=== PATIENT | male | born 1980 | race African-American/Black ===

== ENCOUNTER 2022-08-14 12:34 | Emergency (ER) | payer MEDICAID, OTHER ==
[~2022-08-14] VITALS: Ht 190.5 cm; Wt 101.0 kg
[~2022-08-14 12:34] MED LIST: ALBUTEROL; BUSPAR; RISPERDAL; VISTARIL; WELLBUTRIN
[2022-08-14] MEDS ORDERED: ACETAMINOPHEN 325MG SUPP PR ONE (16:30)
[2022-08-14] MEDS ORDERED: KETOROLAC 30MG/ML VIAL IM ONE (16:30)
[2022-08-14] MEDS ORDERED: ACETAMINOPHEN 325MG TABLET PO ONE ×2 (17:15)
[2022-08-14 17:19] VITALS: BP 135/74
[2022-08-14] MEDS ORDERED: IBUP-2028 MT (18:49)
== END 2022-08-14 19:17 | disposition home or self-care (01) ==
LOC: ER 13:07
DX: S83.8X2A Sprain of other specified parts of left knee, initial encounter (principal); Y04.2XXA Assault by strike against or bumped into by another person, initial encounter; R03.0 Elevated blood-pressure reading, without diagnosis of hypertension; Y93.89 Activity, other specified; Y92.89 Other specified places as the place of occurrence of the external cause
CPT/HCPCS: 73560; 96372; 99283; J1885; L1830; Z7610

== ENCOUNTER 2023-12-04 14:08 | Emergency (ER) | payer OTHER ==
[~2023-12-04] VITALS: Ht 188 cm; Wt 105.0 kg
[~2023-12-04 14:08] MED LIST changes: +IBUP-2028 MT
[2023-12-04 14:26] VITALS: O2SAT 99
[2023-12-04 19:48] VITALS: BP 102/63; PULSE 78; RESP 12; TEMP 98.6
== END 2023-12-04 19:45 | disposition home or self-care (01) ==
LOC: ER 14:08
DX: M25.562 Pain in left knee (principal); M25.561 Pain in right knee; Z91.048 Other nonmedicinal substance allergy status; Z98.890 Other specified postprocedural states; V49.9XXA Car occupant (driver) (passenger) injured in unspecified traffic accident, initial encounter; Y93.89 Activity, other specified; Y92.89 Other specified places as the place of occurrence of the external cause; Y99.8 Other external cause status
CPT/HCPCS: 99281

== ENCOUNTER 2024-10-23 10:59 | Emergency (ER) | payer OTHER ==
[~2024-10-23] VITALS: Ht 188 cm; Wt 121.0 kg
[2024-10-23 11:03] VITALS: O2SAT 99
[2024-10-23] MEDS ORDERED: DOXY100C5 MT (13:27)
[2024-10-23] MEDS ORDERED: LIDOCAINE HCL/PF 1% 10 MG/ML 5ML VIAL INFIL ONE (13:45)
[2024-10-23] MEDS: CEFTRIAXONE SODIUM 500MG VIAL IM ONE (13:52)
[2024-10-23 13:58] VITALS: BP 128/79; PULSE 84; RESP 18; TEMP 36.9; O2SAT 100
[2024-10-23 14:10] LABS: CLARITY URINE CLEAR (CLEAR); COLOR URINE DARK YELLOW (YELLOW); GLUCOSE URINE NEGATIVE (NEGATIVE); KETONES URINE 3+ (NEGATIVE); LEUKOCYTE ESTERASE URINE NEGATIVE (NEGATIVE); NITRITE URINE NEGATIVE (NEGATIVE); OCCULT BLOOD URINE TRACE (NEGATIVE); PROTEIN URINE 2+ (NEGATIVE); SPECIFIC GRAVITY URINE 1.035 (1.005-1.030)
[2024-10-23 14:22] LABS: MUCUS URINE 2+ /lpf (NONE/TRACE); SQUAMOUS EPITHELIAL CELL URINE FEW /lpf (RARE/1+)
[2024-10-23 14:23] LABS: RBC URINE 0-2 /hpf (0-2); WBC URINE 0-2 /hpf (0-2)
[2024-10-23 14:55] LABS: BACTERIA URINE NONE SEEN
[2024-10-26 04:11] LABS: CHLAMYDIA TRACHOMATIS NAA Negative (Negative); NEISSERIA GONORRHOEAE NAA Negative (Negative)
== END 2024-10-23 13:59 | disposition home or self-care (01) ==
LOC: ER 10:59
DX: Z11.3 Encounter for screening for infections with a predominantly sexual mode of transmission (principal); I10 Essential (primary) hypertension; F32.A Depression, unspecified; Z79.899 Other long term (current) drug therapy; Z98.890 Other specified postprocedural states
CPT/HCPCS: 99283; 86592; 87491; 87591; 81003; 87086; 36415; 96372; J0696; J2003